=== PATIENT | male | born 1950 | race Caucasian/White ===

== ENCOUNTER → 2018-01-20 14:56 | Outpatient (POV) | payer MEDICARE, OTHER, SELFPAY | PROVIDERS: Visit Provider Dermatology | DX: Z00.00 Encounter for general adult medical examination without abnormal findings (principal) ==

== ENCOUNTER 2018-04-13 11:50 | Observation (INO) ==
[2018-04-13 12:21] LABS: Basophils # 0.1 K/mm3 (0-0.2); Eosinophils # 0.7 K/mm3 (0.0-0.4); Eosinophils % 8.8 % (0.1-12.0); Hematocrit 41.5 % (42.0-52.0); Hemoglobin 12.9 g/dL (14.1-18.0); Lymphocytes # 2.2 K/mm3 (0.7-4.5); Lymphocytes % 27.9 % (10-50); Mean Corpuscular HGB Conc 31.2 g/dL (31.8-35.4); Mean Corpuscular Hemoglobin 29.7 pg (27.0-31.2); Mean Corpuscular Volume 95.3 fl (80-94); Mean Platelet Volume 9.1 fl (7.4-10.4); Monocytes # 0.5 K/mm3 (0.1-1.0); Monocytes % 5.7 % (1.7-9.3); Neutrophils # 4.5 K/mm3 (1.8-7.8); Neutrophils % 56.7 % (37.0-80.0); Platelet Count 333 K/mm3 (142-424); Red Blood Count 4.36 M/mm3 (4.60-6.20); Red Cell Distribution Width 16.1 % (11.5-17.5); White Blood Count 7.9 K/mm3 (4.8-10.8)
[2018-04-13 12:36] LABS: Albumin Level 3.6 gm/dL (3.4-5.0); Albumin/Globulin Ratio 0.9 (1.1-1.8); Anion Gap 13.3 mEq/L (5-15); Bilirubin,Total 0.5 mg/dL (0.2-1.0); Calcium 9.6 mg/dL (8.5-10.1); Globulin 3.9 gm/dl (1.3-3.2); Potassium 4.3 mmoL/L (3.5-5.1); Total Protein,Serum 7.5 gm/dL (6.4-8.2)
--- NOTE | 2018-04-13 12:41 | Emergency Department Note ---
ED Disposition Clinical Impression: Dehydration, Abdominal pain, COPD with exacerbation, Pulmonary infiltrate Disposition: Admitted as Observation Condition on Discharge: Fair Time of Disposition: 16:35 - Critical Care Critical Care Time: No Attestation: On 04/13/18, the high probability of a clinically significant, sudden or life threatening deterioration of the following system(s) required my full and direct attention, intervention and personal management. The time I documented below is in addition to time spent performing reported procedures but includes the following listed in this critical care notation. Medical Decision Making - Medical Records Medical records reviewed: Yes: I reviewed the patient's medical records. - Damon Inquiry Pt receiving controlled substance: No Damon was queried for this patient: No Vital Signs: 04/13/18 11:51 04/13/18 12:47 04/13/18 14:06 Temperature 99.4 F Temperature Source Oral Pulse Rate 69 Pulse Rate [Right Radial] 74 64 Respiratory Rate 18 18 Blood Pressure [Right Arm] 141/71 H 96/62 L Blood Pressure Mean [Right Arm] 94 73 Blood Pressure Source [Right Arm] Automatic Cuff Automatic Cuff Blood Pressure Position [Right Arm] Sitting Sitting 02 Sat by Pulse Oximetry 94 L 97 Oxygen Delivery Method Room Air Room Air - Lab Data Lab results reviewed: Yes: I reviewed the patient's lab results. Lab Results 04/13/18 12:05: WBC 7.9, RBC 4.36 L, Hgb 12.9 L, Hct 41.5 L, MCV 95.3 H, MCH 29.7, MCHC 31.2 L, RDW 16.1, Plt Count 333, MPV 9.1, Neut % (Auto) 56.7, Lymph % (Auto) 27.9, [place] % (Auto) 5.7, Eos % (Auto) 8.8, Baso % (Auto) 1.0, Neut # (Auto) 4.5, Lymph # (Auto) 2.2, [place] # (Auto) 0.5, Eos # (Auto) 0.7 H, Baso # (Auto) 0.1 04/13/18 12:05: Sodium 139, Potassium 4.3, Chloride 102, Carbon Dioxide 28, Ani on Gap 13.3, BUN 35 H, Creatinine 2.25 H, Estimated Creat Clear 19, Estimated GFR 29 L, Est GFR ( Amer) 35 L, Glucose 99, Calcium 9.6, Total Bilirubin 0.5, AST 20, ALT 20, Alkaline Phosphatase 104, Total Protein 7.5, Albumin 3.6, Globulin 3.9 H, Albumin/Globulin Ratio 0.9 L 04/13/18 12:05: Lactate 0.8 04/13/18 12:08: Influenza Type A Ag Negative, Influenza Type B Ag Negative Patient's BUN and creatinine elevated consistent with dehydration Result diagrams: 04/13/18 12:05 04/13/18 12:05 Orders (Tests/Meds): ED MEDICATIONS Generic Name Dose Route Start Last Admin Trade Name Freq PRN Reason Stop Dose Admin Acetaminophen 650 mg 04/13/18 15:37 Acetaminophen 325mg Tab PO 05/13/18 15:25 Q4HP PRN As Needed for Fever or Pain Albuterol/Ipratropium 3 ml 04/13/18 17:00 Duoneb 3ml [facility] 05/13/18 16:59 QID JASON Azithromycin 500 mg/ Sodium 250 mls @ 250 mls/hr 04/14/18 15:30 Chloride IV 04/27/18 15:29 Q24H JASON Protocol Ceftriaxone Sodium 1 gm/ 50 mls @ 100 mls/hr 04/14/18 15:30 Sodium Chloride IV 04/27/18 15:29 Q24H JASON Protocol Lactated Ringer's 1,000 mls @ 100 mls/hr 04/13/18 15:37 Lactated Ringer's 1000 Ml Bag IV 05/13/18 15:29 .Q10H JASON Nicotine 21 mg 04/13/18 15:37 Nicoderm 21mg/24hr Patch TD 05/13/18 15:25 DAILYP PRN Nicotine Cravings Ondansetron HCl 4 mg 04/13/18 15:37 Zofran 4mg/2ml Vial IV 05/13/18 15:25 Q8HP PRN Nausea Pantoprazole Sodium 40 mg 04/14/18 09:00 Protonix 40mg Tablet PO 05/14/18 08:59 DAILY JASON Sodium Chloride 10 ml 04/13/18 15:37 Saline Flush 10ml Syringe IV 05/13/18 12:00 NEEDED PRN Maintain IV Site Sodium Chloride 3 ml 04/13/18 15:37 Sodium Chloride 3% 15ml [facility] 05/13/18 15:20 ONCE PRN INDUCE SPUTUM COLLECTION Discontinued Medications Generic Name Dose Route Start Last Admin Trade Name Freq PRN Reason Stop Dose Admin Acetaminophen 650 mg 04/13/18 15:26 Acetaminophen 325mg Tab PO 05/13/18 15:25 Q4HP PRN As Needed for Fever or Pain Albuterol/Ipratropium 3 ml 04/13/18 12:09 04/13/18 12:15 Duoneb 3ml Neb IH 04/13/18 12:10 3 ml ONCE ONE Administration Dexamethasone Sodium Phosphate 10 mg 04/13/18 12:24 04/13/18 12:40 Decadron 4mg/Ml 5ml Mdv IV 04/13/18 12:25 10 mg ONCE ONE Administration Lactated Ringer's 1,000 mls @ 2,000 mls/hr 04/13/18 12:30 04/13/18 12:42 Lactated Ringer's 1000 Ml Bag IV 04/13/18 12:59 2,000 mls/hr .Q30M JASON Administration Azithromycin 500 mg/ Sodium 250 mls @ 250 mls/hr 04/13/18 15:30 Chloride IV 04/27/18 15:29 Q24H JASON Protocol Ceftriaxone Sodium 1 gm/ 50 mls @ 100 mls/hr 04/13/18 15:30 Sodium Chloride IV 04/27/18 15:29 Q24H JASON Protocol Lactated Ringer's 1,000 mls @ 100 mls/hr 04/13/18 15:30 Lactated Ringer's 1000 Ml Bag IV 05/13/18 15:29 .Q10H JASON Nicotine 21 mg 04/13/18 15:26 Nicoderm 21mg/24hr Patch TD 05/13/18 15:25 DAILYP PRN Nicotine Cravings Ondansetron HCl 4 mg 04/13/18 12:25 04/13/18 12:40 Zofran 4mg/2ml Vial IV 04/13/18 12:26 4 mg ONCE ONE Administration Ondansetron HCl 4 mg 04/13/18 15:26 Zofran 4mg/2ml Vial IV 05/13/18 15:25 Q8HP PRN Nausea Pantoprazole Sodium 40 mg 04/14/18 09:00 Protonix 40mg Tablet PO 05/14/18 08:59 DAILY JASON Sodium Chloride 10 ml 04/13/18 12:01 04/13/18 12:42 Saline Flush 10ml Syringe IV 05/13/18 12:00 10 ml NEEDED PRN Administration Maintain IV Site Sodium Chloride 3 ml 04/13/18 15:21 Sodium Chloride 3% 15ml Neb IH 05/13/18 15:20 ONCE PRN INDUCE SPUTUM COLLECTION ORDERS Category Date Time Status Blood Culture Stat Micro 04/13/18 12:01 Ordered Sputum Culture & Gram Stain Stat Micro 04/13/18 15:21 Ordered - Reevaluation(s) Time: 16:05 Reevaluation #1: Patient's lung sounds improved with DuoNeb and IV Decadron given IV fluids Medical Decision Narrative: Doctor's office contacted no evidence in the notes of history of cancer differential diagnosis viral syndrome bronchitis exacerbation of COPD abdominal pain gastroenteritis Patient CT of the chest and abdomen do not reveal any malignancy possible patchy infiltrate in the right lung base posteriorly with COPD patient's abdominal CT shows bilateral nephrolithiasis mildly distended gallbladder and nonspecific air-fluid level in mid to upper pelvic region containing some hyperdense material posteriorly stable left lower lobe pulmonary nodule patient improved with DuoNeb discussed with Dr. Dorsey and being admitted for IV antibiotics additional treatment with nebulizers for bronchodilation General Adult HPI - General Chief complaint: Nausea/Vomiting/Diarrhea Stated complaint: vomitting, stomach pain Time Seen by Provider: 04/13/18 11:55 Mode of Arrival: EMS Limitations: No Limitations Description of Symptoms (Recalled from ER Triage Doc. by RN): Pt reports productve cough that began this morning, reports he has vomitting x2. Pt states "I think I have pneumonia or the flu" - History of Present Illness HPI narrative: Patient comes from facility he is a poor historian and hard of hearing has a history of essential hypertension intellectual disability and depression complaining of cough nausea and vomiting x2 and some abdominal pain he states that he has cancer but is unable to say who told him and what kind of cancer. He smokes has a history of COPD. After receiving notes from patient's PMD Dr. 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 I have reviewed the patient's past medical history: Yes Medical History: Reports:: Diabetes Mellitus Type 2 Denies:: Cancer - Social History Smoking Status: Former smoker Alcohol Intake: never Occupational Status: other - Psychiatric History Expresses thoughts of harming self/others: None Suicide Plan Description: No Plan ROS Obtained: Yes All systems reviewed & no additional complaints - Constitutional Constitutional: Reports body ache - Respiratory Respiratory: Yes as per HPI, Yes dyspnea, Yes wheezing - Gastrointestinal Gastrointestingal: Reports: abdominal pain Physical Exam - General General appearance: alert, in no apparent distress (Patient seems under nourished and dehydrated but alert and oriented) - Head Head exam: atraumatic, normocephalic, normal inspection - Eye Eye exam: Present: normal appearance, PERRL, EOMI - ENT ENT exam: Present: normal exam, normal oropharynx, mucous membranes moist, TM's normal bilaterally, normal external ear exam - Neck Neck exam: Present: normal inspection, full ROM, trachea midline. Absent: me ningismus, lymphadenopathy - Chest Chest inspection: Present: normal inspection, symmetric chest wall rise. Absent: tenderness - Respiratory Respiratory exam: Present: wheezes (Distant breath sounds with wheezing). Absen t: normal lung sounds bilaterally, respiratory distress - Cardiovascular Cardiovascular exam: Present: regular rate, normal rhythm. Absent: JVD - Abdominal Exam Abdominal exam: Present: soft, normal bowel sounds. Absent: distention, tenderness, guarding - Extremities Exam Extremities exam: Present: normal inspection, full ROM, normal capillary refill. Absent: calf tenderness - Back Exam Back exam: Present: normal inspection. Absent: tenderness - Neurological Exam Neurological exam: Present: alert, oriented X3 - Psychiatric Psychiatric exam: Present: normal affect, normal mood - Skin Skin exam: Present: warm, dry, intact, normal color - Lymphatic Lymphatic Findings: no adenopathy
[2018-04-13 16:15] LABS: Microscopic, Urine URINE MICROSCOPIC (MICROSCOPIC)
[2018-04-13 16:19] LABS: Appearance,Urine CLEAR (Clear); Bilirubin,Urine Negative (Negative); Blood, Urine Negative (Negative); Color,Urine YELLOW (Yellow); Glucose,Urine (UA) Negative (Negative); Ketones,Urine Negative (Negative); Leukocyte Esterase,Urine Negative (Negative); PH,Urine 6.5 (5.0-8.5); Protein,Urine Negative (Negative); Specific Gravity, Urine <= 1.005 (1.005-1.030); Urobilinogen,Urine 0.2 EU/dl (0.2)
[2018-04-13 16:31] LABS: Bacteria,Urine Trace /lpf; Squamous Epithelial Cell,Urine Occasional #/hpf (0-5); WBC,Urine Occasional #/hpf (0-3)
--- NOTE | 2018-04-14 07:45 | Pharmacy Consult Notes ---
[facility] Pharmacy VTE Monitoring - Patient Demographics Admission date: 04/13/18 Report Date: 04/14/18 Time: 07:44 Allergies/Adverse Reactions: Patient Allergies No Known Allergies Allergy (Unverified 03/04/17 15:14) Height: 1.57 m Weight: 37.79 kg Patient Problems: Current Active Problems Dehydration (Acute) Abdominal pain (Acute) COPD with exacerbation (Acute) Pulmonary infiltrate (Acute) - VTE Risk Labs: VTE Related Lab Results Hgb 12.9 g/dL (14.1-18.0) L 04/13/18 12:05 Hct 41.5 % (42.0-52.0) L 04/13/18 12:05 Plt Count 333 K/mm3 (142-424) 04/13/18 12:05 BUN 35 mg/dL (7-18) H 04/13/18 12:05 Creatinine 2.25 mg/dL (0.70-1.30) H 04/13/18 12:05 Estimated Creat Clear 19 mL/min (50-200) 04/13/18 12:05 Clinical Trial Participant: No - Prophylaxis VTE Prophylaxis Ordered?: Yes Types of VTE Prophylaxis: TEDS Knee High
--- NOTE | 2018-04-14 08:43 | History & Physical Report ---
*Admission Date: 04/13/18 *Chief complaint: cough, vomiting *History of present illness: 67 year old male with cognitive and intellectual disability presented to the ED with cough and vomiting x 2 days. Patient is a poor historian and is difficult to understand due to his disability. Patient was residing at [facility] until a few weeks ago when he was discharged home with his brother. He has done fairly well until his illness the last few days. He has had ongoing issues with post-prandial vomiting for months. He was scheduled to see GI, but I am unsure if this happened. In the ED, he was found to have a patchy RLL infiltrate and stable LLL nodule. Patient continues to believe he has cancer although our office has no record of this. CT chest and abdomen show no evidence of malignancy. Labs revealed dehydrated with creatinine 2.25. Patient was admitted for IV antibiotics and hydration. [facility] History I have reviewed the patient's past medical history: Yes Medical History: Reports:: Diabetes Mellitus Type 2, Hypertension Denies:: Cancer Have you ever received a pneumonia vaccine?: Yes Have you received a flu vaccine this season?: Yes - *Social History Smoking Status: Former smoker Alcohol Intake: never Occupational Status: other Travel in the last 8 weeks: None - Psychiatric History Expresses thoughts of harming self/others: None Suicide Plan Description: No Plan Review of Systems - Review of Systems Review of systems:: pertinent systems reviewed and negative unless documented below - Constitutional Reports weakness - *Respiratory Reports cough, Reports shortness of breath - *Gastrointestinal Reports nausea, Reports vomiting Meds Home Medications Medication Instructions Recorded Confirmed Type Aspirin [Aspirin 81mg chewable 81 mg PO DAILY 04/13/18 04/13/18 History tab] Atorvastatin Calcium [Atorvastatin 40 mg PO HS 04/13/18 04/13/18 History 40mg Tab] Doxycycline Hyclate [Doxycycline 100 mg PO BID 04/13/18 04/13/18 History 100mg Capsule] Fluoxetine HCl 40 mg PO DAILY 04/13/18 04/13/18 History Furosemide [Furosemide 40MG tAB] 40 mg PO DAILY 04/13/18 04/13/18 History Lisinopril [Lisinopril 20mg Tab] 20 mg PO DAILY 04/13/18 04/13/18 History Magnesium Oxide [Magnesium] 400 mg PO DAILY 04/13/18 04/13/18 History Megestrol Acetate 20 mg PO ACHS 04/13/18 04/13/18 History Montelukast Sodium [Montelukast 10 mg PO DAILY 04/13/18 04/13/18 History 10mg Tab] Pantoprazole Sodium [Protonix 40mg 40 mg PO DAILY 04/13/18 04/13/18 History tablet] raNITIdine HCl [Acid Control] 150 mg PO BID 04/13/18 04/13/18 History Metoprolol Tartrate [Lopressor 12.5 mg PO BID 04/14/18 04/14/18 History 25mg tablet] Allergies Allergy/AdvReac Type Severity Reaction Status Date / Time No Known Allergies Allergy Unverified 03/04/17 15:14 Exam Vital signs and Labs for Last 24 Hours: Temp Pulse Resp BP Pulse Ox 98.1 F 84 20 90/53 L 93 L 04/14/18 08:22 04/14/18 08:22 04/14/18 08:22 04/14/18 08:22 04/14/18 08:22 Laboratory Results - last 24 hr 04/13/18 12:05: WBC 7.9, RBC 4.36 L, Hgb 12.9 L, Hct 41.5 L, MCV 95.3 H, MCH 29.7, MCHC 31.2 L, RDW 16.1, Plt Count 333, MPV 9.1, Neut % (Auto) 56.7, Lymph % (Auto) 27.9, [place] % (Auto) 5.7, Eos % (Auto) 8.8, Baso % (Auto) 1.0, Neut # (Auto) 4.5, Lymph # (Auto) 2.2, [place] # (Auto) 0.5, Eos # (Auto) 0.7 H, Baso # (Auto) 0.1 04/13/18 12:05: Sodium 139, Potassium 4.3, Chloride 102, Carbon Dioxide 28, Anion Gap 13.3, BUN 35 H, Creatinine 2.25 H, Estimated Creat Clear 19, Estimated GFR 29 L, Est GFR ( Amer) 35 L, Glucose 99, Calcium 9.6, Total Bilirubin 0.5, AST 20, ALT 20, Alkaline Phosphatase 104, Total Protein 7.5, Albumin 3.6, Globulin 3.9 H, Albumin/Globulin Ratio 0.9 L 04/13/18 12:05: Lactate 0.8 04/13/18 12:08: Influenza Type A Ag Negative, Influenza Type B Ag Negative 04/13/18 12:50: Urine Color Yellow, Urine Appearance Clear, Urine pH 6.5, Ur Specific [place] <= 1.005, Urine Protein Negative, Urine Glucose (UA) Negative, Urine Ketones Negative, Urine Blood Negative, Urine Nitrate Negative, Urine Bilirubin Negative, Urine Urobilinogen 0.2, Ur Leukocyte Esterase Negative, Urine WBC Occasional, Ur Squamous Epith Cells Occasional, Urine Bacteria Trace 04/14/18 00:16: POC Glucose 134 H I & O for Last 24 hours: Intake & Output 04/11/18 04/12/18 04/13/18 04/14/18 11:59 11:59 11:59 11:59 Intake Total 1200 / 1200 Output Total 600 / 600 Balance 600 / 600 Weight 90 lb 83 lb 5 oz Microbiology Reports for the Last 24 Hours: Microbiology 04/13/18 17:08 Sputum - Expectorated Sputum Gram Stain - Final 04/13/18 17:08 Sputum - Expectorated Sputum Sputum Culture - Preliminary Narrative: Alert and oriented at baseline with obvious cognitive/intellectual disability. Speech somewhat garbled at baseline. Rate and rhythm regular. No LE edema. Rhonchi and wheezes throughout all lung oneil. Abdomen soft, nontender. Flesh colored growth on left cheek, oral membranes dry, no erythema. Skin pink, warm and dry. Assessment and Plan (1) Nausea & vomiting Current visit: Yes Status: Chronic Category: Medical Code(s): R11.2 - Nausea with vomiting, unspecified (2) CAP (community acquired pneumonia) Current visit: Yes Status: Acute Category: Medical Code(s): J18.9 - Pneumonia, unspecified organism (3) COPD with exacerbation Current visit: Yes Status: Chronic Category: Medical Code(s): J44.1 - Chronic obstructive pulmonary disease with (acute) exacerbation (4) Dehydration Current visit: Yes Status: Acute Category: Medical Code(s): E86.0 - Dehydration - Assessment and plan all Dx Assessment and Plan for all problems:: CAP protocol with azithromycin and ceftriaxone. Continue duonebs. Obtain sputum culture if able to produce. He has had some low normal blood pressures. Will give 500 ML bolus this morning. Continue IVF. Recheck BMP in the am.
[2018-04-14 10:07] LABS: Anion Gap 16.1 mEq/L (5-15); Calcium 8.8 mg/dL (8.5-10.1); Potassium 4.1 mmoL/L (3.5-5.1)
[2018-04-15 06:46] LABS: Anion Gap 11.2 mEq/L (5-15); Calcium 8.5 mg/dL (8.5-10.1); Potassium 4.2 mmoL/L (3.5-5.1)
--- NOTE | 2018-04-15 10:38 | Progress Note ---
Internal Medicine - PN: Subj *Date: 04/15/18 *Time: 08:15 Interval history: Patient resting in bed, reports post-prandial vomiting yesterday. States "I don't feel too good." Exam Vital signs and Labs for Last 24 Hours: Temp Pulse Resp BP Pulse Ox 98.1 F 107 H 20 117/59 L 91 L 04/15/18 07:49 04/15/18 09:28 04/15/18 07:49 04/15/18 07:49 04/15/18 07:49 Laboratory Results - last 24 hr 04/15/18 06:03: Sodium 143, Potassium 4.2, Chloride 110 H, Carbon Dioxide 26, Anion Gap 11.2, BUN 21 H D, Creatinine 1.38 H D, Estimated Creat Clear 31, Estimated GFR 52 L, Est GFR ( Amer) 62 D, Glucose 96 D, Calcium 8.5 I & O for Last 24 hours: Intake & Output 04/12/18 04/13/18 04/14/18 04/15/18 11:59 11:59 11:59 11:59 Intake Total 1200 / 1200 3863 / 3863 Output Total 600 / 600 1650 / 1650 Balance 600 / 600 2213 / 2213 Weight 90 lb 83 lb 5 oz 92 lb 5 oz Microbiology Reports for the Last 24 Hours: Microbiology 04/13/18 17:08 Sputum - Expectorated Sputum Gram Stain - Final 04/13/18 17:08 Sputum - Expectorated Sputum Sputum Culture - Preliminary Narrative: ALert and oriented at baseline, with obvious cognitive impairment. Rate and rhythm regular. Rhonchi and wheezes throughout. Abdomen soft and nontender. No LE edema Assessment and Plan (1) Nausea & vomiting Current visit: Yes Status: Chronic Category: Medical Code(s): R11.2 - Nausea with vomiting, unspecified (2) CAP (community acquired pneumonia) Current visit: Yes Status: Acute Category: Medical Code(s): J18.9 - Pneumonia, unspecified organism (3) COPD with exacerbation Current visit: Yes Status: Chronic Category: Medical Code(s): J44.1 - Chronic obstructive pulmonary disease with (acute) exacerbation (4) Dehydration Current visit: Yes Status: Acute Category: Medical Code(s): E86.0 - Dehydration - Assessment and plan all Dx Assessment and Plan for all problems:: Continue IV antibiotics and duonebs. Add solu-medrol. Creatinine improved at 1.38 this morning. Continue IVF's, will recheck BMP in the am.
[2018-04-16 07:26] LABS: Anion Gap 13.4 mEq/L (5-15); Calcium 8.4 mg/dL (8.5-10.1); Potassium 4.4 mmoL/L (3.5-5.1)
--- NOTE | 2018-04-16 07:29 | Discharge Summary ---
General - General Admission date:: 04/13/18 Discharge date: 04/16/18 HPI HPI: 67 year old male with cognitive and intellectual disability presented to the ED with cough and vomiting x 2 days. Patient is a poor historian and is difficult to understand due to his disability. Patient was residing at [facility] until a few weeks ago when he was discharged home with his brother. He has done fairly well until his illness the last few days. He has had ongoing issues with post-prandial vomiting for months. He was scheduled to see GI, but I am unsure if this happened. In the ED, he was found to have a patchy RLL infiltrate and stable LLL nodule. Patient continues to believe he has cancer although our office has no record of this. CT chest and abdomen show no evidence of malignancy. Labs revealed dehydrated with creatinine 2.25. Patient was admitted for IV antibiotics and hydration. Hospital Course Hospital Course: Patient was admitted, he was given intravenous antibiotics and steroids. He slowly improved. His kidney injury also improved and creatinine normalized yesterday. He did have a couple episodes of postprandial emesis but apparently this is a normal pattern for him. He does admit to constipation. Plan will be to discharge home with antibiotics, continued inhalers, we will also try Linzess for his chronic constipation. He will follow-up in our office as scheduled. Objective Vital signs: Temp Pulse Resp BP Pulse Ox 98.4 F 101 H 18 135/79 96 04/16/18 04:00 04/16/18 06:37 04/16/18 04:00 04/16/18 04:00 04/16/18 04:00 Narrative: Patient is alert. Pleasant. Very talkative. Somewhat difficult to understand because of his cognitive abilities. Oropharynx clear and moist. Lungs have rhonchi but much better air entry. No crackles. Heart rate regular without murmurs. Abdomen soft, nontender, nondistended. No clubbing or edema. No cranial nerve deficits. Moves all extremities equally. Results Labs on day of discharge: Preliminary micro results at discharge 04/13/18 12:01 Blood Culture - Preliminary Blood NO GROWTH AFTER 48 HOURS 04/13/18 12:01 Blood Culture - Preliminary Blood NO GROWTH AFTER 48 HOURS 04/13/18 17:08 Sputum Culture - Preliminary Sputum - Expectorated Sputum DS: Diagnosis - Discharge Diagnosis (1) Nausea & vomiting Status: Resolved (2) CAP (community acquired pneumonia) Status: Acute (3) COPD with exacerbation Status: Chronic (4) Dehydration Status: Resolved (5) BMI less than 19,adult Status: Acute (6) Acute kidney injury Status: Acute Discharge Plan - Patient Discharge Instructions ACTIVITY: Continue current activity DIET: continue same diet Patient Instructions: Dehydration, Chronic Obstructive Pulmonary Disease, Acute Abdominal Pain - Follow up Plan Follow up with: Bridgette Bruno APRN [Nurse Practitioner] - 04/24/18 Disposition: Home, Self-Assisted Medications: Home Medications Medication Instructions Recorded Confirmed Type Aspirin [Aspirin 81mg chewable 81 mg PO DAILY 04/13/18 04/13/18 History tab] Atorvastatin Calcium [Atorvastatin 40 mg PO HS 04/13/18 04/13/18 History 40mg Tab] Fluoxetine HCl 40 mg PO DAILY 04/13/18 04/13/18 History Furosemide [Furosemide 40MG tAB] 40 mg PO DAILY 04/13/18 04/13/18 History Lisinopril [Lisinopril 20mg Tab] 20 mg PO DAILY 04/13/18 04/13/18 History Magnesium Oxide [Magnesium] 400 mg PO DAILY 04/13/18 04/13/18 History Megestrol Acetate 20 mg PO ACHS 04/13/18 04/13/18 History Montelukast Sodium [Montelukast 10 mg PO DAILY 04/13/18 04/13/18 History 10mg Tab] Pantoprazole Sodium [Protonix 40mg 40 mg PO DAILY 04/13/18 04/13/18 History tablet] raNITIdine HCl [Acid Control] 150 mg PO BID 04/13/18 04/13/18 History Metoprolol Tartrate [Lopressor 12.5 mg PO BID 04/14/18 04/14/18 History 25mg tablet] Azithromycin [Zithromax 250mg 250 mg PO DIRECTED #6 tab 04/16/18 Rx tab] Cefdinir [Omnicef 300mg Capsule] 300 mg PO BID #14 cap 04/16/18 Rx Linaclotide [Linzess] 72 mcg PO DAILY #30 capsule 04/16/18 Rx Prescriptions/Medication Reconciliation: New Linaclotide [Linzess] 72 mcg PO DAILY #30 capsule Azithromycin [Zithromax 250mg tab] 250 mg PO DIRECTED #6 tab Cefdinir [Omnicef 300mg Capsule] 300 mg PO BID #14 cap Continue Atorvastatin Calcium [Atorvastatin 40mg Tab] 40 mg PO HS Pantoprazole Sodium [Protonix 40mg tablet] 40 mg PO DAILY Megestrol Acetate 20 mg PO ACHS Fluoxetine HCl 40 mg PO DAILY Magnesium Oxide [Magnesium] 400 mg PO DAILY Montelukast Sodium [Montelukast 10mg Tab] 10 mg PO DAILY raNITIdine HCl [Acid Control] 150 mg PO BID Metoprolol Tartrate [Lopressor 25mg tablet] 12.5 mg PO BID Aspirin [Aspirin 81mg chewable tab] 81 mg PO DAILY Discontinued Lisinopril [Lisinopril 20mg Tab] 20 mg PO DAILY Furosemide [Furosemide 40MG tAB] 40 mg PO DAILY
== END 2018-04-16 14:03 | disposition home or self-care (01) ==
LOC: 2ND 11:50 → ER 11:50 → OBSVTOIN 16:59 → INTOOBSV 16:59 → 2ND 17:00
PROVIDERS: ADMIT Internal Medicine Adolescent Medicine; ATTEND Internal Medicine Adolescent Medicine
CPT/HCPCS: 36415; 71010; 71045; 71250; 74176; 80048; 80053; 81001; 82962; 83605; 85025; 87040; 87070; 87205; 87275; 87276; 94640; 96365; 96375; 99284; G0378; J0456; J2405

== ENCOUNTER → 2018-12-15 13:49 | Outpatient (POV) | payer MEDICARE, MEDICAID, SELFPAY | PROVIDERS: Visit Provider Dermatology | DX: Z00.00 Encounter for general adult medical examination without abnormal findings (principal) ==

== ENCOUNTER → 2019-11-23 10:46 | Outpatient (CLI) | payer MEDICARE, MEDICAID, SELFPAY ==
[2019-11-23 14:55] LABS: Basophils # 0.1 K/mm3 (0-0.2); Basophils % 1.2 % (0.1-2.0); Eosinophils # 0.5 K/mm3 (0.0-0.4); Eosinophils % 7.5 % (0.1-12.0); Hematocrit 42.3 % (42.0-52.0); Hemoglobin 13.4 g/dL (14.1-18.0); Lymphocytes # 1.8 K/mm3 (0.7-4.5); Lymphocytes % 26.5 % (10-50); Mean Corpuscular HGB Conc 31.6 g/dL (31.8-35.4); Mean Corpuscular Hemoglobin 28.3 pg (27.0-31.2); Mean Corpuscular Volume 89.7 fl (80-94); Mean Platelet Volume 10.3 fl (7.4-10.4); Monocytes # 0.4 K/mm3 (0.1-1.0); Monocytes % 6.4 % (1.7-9.3); Neutrophils % 58.4 % (37.0-80.0); Platelet Count 305 K/mm3 (142-424); Red Blood Count 4.71 M/mm3 (4.60-6.20); Red Cell Distribution Width 16.3 % (11.5-17.5); Reticulocyte % (Auto) 1.2 % (0.9-3.2); White Blood Count 6.8 K/mm3 (4.8-10.8)
== END ==
PROVIDERS: Visit Provider Internal Medicine Adolescent Medicine
DX: D64.9 Anemia, unspecified (principal); E86.0 Dehydration
CPT/HCPCS: 85025; 85044